=== PATIENT | male | born 1985 | race Caucasian/White ===

== ENCOUNTER → 2018-12-21 | Outpatient (REF) | payer OTHER | LOC: M SFHCLERA 20:29 | PROVIDERS: ATTEND Physician Assistant | DX: R50.9 Fever, unspecified (principal) ==

== ENCOUNTER 2019-02-14 20:16 | Emergency (ER) | payer OTHER ==
[~2019-02-14] VITALS: Ht 180.3 cm; Wt 84.5 kg
[2019-02-14] MEDS ORDERED: DERMABOND TOPICAL SKIN ADHESIVE TOP ONE (22:15)
[2019-02-14 22:45] VITALS: BP 124/75
== END 2019-02-14 22:47 | disposition home or self-care (01) ==
LOC: M ED 20:16
DX: S61.012A Laceration without foreign body of left thumb without damage to nail, initial encounter (principal); W26.0XXA Contact with knife, initial encounter; Y92.018 Other place in single-family (private) house as the place of occurrence of the external cause; Z87.891 Personal history of nicotine dependence